=== PATIENT | female | born 1975 | race Caucasian/White ===

== ENCOUNTER → 2016-07-05 | Outpatient (CLI) | payer OTHER ==
[~2016-07-05] VITALS: Ht 156.2 cm; Wt 88.0 kg
[~2016-07-05] MED LIST: ALLEGRA60 MG PO; COLACE100 MG PO; CYANOCOBALAM1000 MCG PO; DEXILANT30 MG PO; ELAVIL10 MG PO; FIBER500 MG PO; IMITREX100 MG PO; MULTIPLE VITAM1 EAC4 PO; NAPROSYN500 MG PO; NASACORT10.8 ML BOTH NARES; TYLENOL EXTRA500 MG PO; VITAMIN C1000 MG PO; ZESTRIL10 MG PO; ZONEGRAN100 MG PO
== END | disposition home or self-care (01) ==
LOC: AMB 06:50
PROC: 0DBE8ZZ Excision of Large Intestine, Via Natural or Artificial Opening Endoscopic (ICD-10-PCS; principal; 2016-07-05)
DX: Z12.11 Encounter for screening for malignant neoplasm of colon (principal); D12.3 Benign neoplasm of transverse colon; D12.8 Benign neoplasm of rectum; K64.9 Unspecified hemorrhoids; Z80.0 Family history of malignant neoplasm of digestive organs; I10 Essential (primary) hypertension; K21.9 Gastro-esophageal reflux disease without esophagitis
CPT/HCPCS: 88305; 93005; J2250